=== PATIENT | female | born 1980 | race Asian ===

== ENCOUNTER 2018-02-12 06:10 | Inpatient (IN) | payer BC ==
[~2018-02-12] VITALS: Ht 165.1 cm; Wt 83.0 kg
[2018-02-12] MEDS ORDERED: LR 1,000 ML IV SCH ×2 (06:15→08:30)
[2018-02-12] MEDS ORDERED: CEFAZOLIN 2 GM IVPB PREMIX 50 ML IV ONE (06:15)
[2018-02-12 06:50] LABS: BASOPHILS % (AUTO) 0.2 % (0.0-2.0); EOSINOPHILS # (AUTO) 0.1 K/uL (0.0-0.4); EOSINOPHILS % (AUTO) 1.4 % (0.0-4.0); HEMATOCRIT 36.9 % (36-48); HEMOGLOBIN 12.6 g/dL (12.0-16.0); LYMPHOCYTES # (AUTO) 1.8 K/uL (1.0-5.5); LYMPHOCYTES % (AUTO) 25.2 % (20.5-51.5); MEAN CORPUSCULAR HEMOGLOBIN 32 pg (27-31); MEAN CORPUSCULAR HGB CONC 34 % (32-36); MEAN CORPUSCULAR VOLUME 95 fL (79.0-98.0); MONOCYTES # (AUTO) 0.4 K/uL (0.0-1.0); NEUTROPHILS # (AUTO) 4.8 K/uL (1.8-7.7); NEUTROPHILS % (AUTO) 67.2 % (40.0-70.0); PLATELET COUNT (AUTO) 180 K/uL (130-430); RED BLOOD CELL COUNT(AUTO) 3.88 MIL/uL (4.2-6.2); WHITE BLOOD COUNT (AUTO) 7.1 K/uL (4.8-10.8)
[2018-02-12] MEDS ORDERED: ONDANSETRON HCL 4 MG/2 ML VIAL IVP PRN (08:30)
[2018-02-12] MEDS ORDERED: HYDROmorphone 1 MG INJ. 1 MG/ML AMPUL IVP PRN (08:30)
[2018-02-12] MEDS ORDERED: NALOXONE HCL 0.4 MG/ML AMP (NARCAN) IVP PRN ×3 (08:30)
[2018-02-12] MEDS ORDERED: HYDROmorphone 2 MG/ML VIAL IVP PRN ×2 (08:30)
[2018-02-12] MEDS ORDERED: MEPERIDINE HCL/PF 25 MG/ML DISP.SYRIN IVP PRN ×2 (08:30)
[2018-02-12] MEDS ORDERED: NALOXONE HCL 1 MG in NACL 0.9% 1,000 ML IV PRN ×4 (08:30)
[2018-02-12] MEDS ORDERED: DIPHENHYDRAMINE HCL 50 MG CAPSULE PO PRN (08:30)
[2018-02-12] MEDS ORDERED: KETOROLAC TROMETHAMINE 60 MG/2 ML VIAL IM PRN (08:30)
[2018-02-12] MEDS ORDERED: ONDANSETRON HCL 4 MG/2 ML VIAL ONE (08:50)
[2018-02-12] MEDS ORDERED: BUPIVACAINE /DEX PF 0.75% SPINAL 2 ML AMP INJ ONE (08:50)
[2018-02-12] MEDS ORDERED: MORPHINE SULFATE 10MG/10ML PF AMP ONE (08:50)
[2018-02-12] MEDS ORDERED: OXYTOCIN 10 UNIT/ML VIAL ONE (08:50)
[2018-02-12] MEDS ORDERED: NS IRRIG SOLN 1000 ML IR ONE (08:50)
[2018-02-12] MEDS ORDERED: TRIAMCINOLONE ACETONIDE 40 MG/ML ONE (08:50)
[2018-02-12] MEDS ORDERED: LR 1,000 ML IV.SOLN IV ONE (08:50)
[2018-02-12] MEDS ORDERED: OXYTOCIN/0.9 % SODIUM CHLORIDE 20 UNITS/1,000 ML BAG IV ONE (08:50)
[2018-02-12] MEDS ORDERED: OXYTOCIN/0.9 % SODIUM CHLORIDE 1,000 ML IV ONE ×2 (09:42→11:42)
[2018-02-12] MEDS ORDERED: LANOLIN 7 GM OINT. TP PRN (11:45)
[2018-02-12] MEDS ORDERED: SIMETHICONE 80 MG TAB.CHEW PO PRN (11:45)
[2018-02-12] MEDS ORDERED: OXYCODONE/ACETAMINOPHEN 5-325 TABLET PO PRN (11:45)
[2018-02-12] MEDS ORDERED: ANUSOL 1 EA SUPP.RECT (PREPARATION H) RC PRN (11:45)
[2018-02-12] MEDS ORDERED: SENNOSIDES/DOCUSATE SODIUM 1 TAB TABLET(SENOKOT-S) PO PRN (11:45)
[2018-02-12] MEDS ORDERED: DOCUSATE SODIUM 100 MG CAPSULE PO PRN (11:45)
[2018-02-12] MEDS ORDERED: BISACODYL 10 MG/SUPPOSITORY RC PRN (11:45)
[2018-02-12] MEDS: CEFAZOLIN 1 GM IVPB PREMIX 50 ML IV SCH ×2 (12:21→17:18)
[2018-02-12 16:28] VITALS: BP_SYST 128
[2018-02-12] MEDS: LR 1,000 ML IV SCH (18:19)
[2018-02-12] MEDS: DIPHENHYDRAMINE INJ 50 MG/ML VIAL IVP PRN (18:30)
[2018-02-13] MEDS: CEFAZOLIN 1 GM IVPB PREMIX 50 ML IV SCH (00:13)
[2018-02-13] MEDS: IBUPROFEN 600 MG TABLET PO SCH ×2 (00:13→12:10)
[2018-02-13] MEDS: KETOROLAC TROMETHAMINE 30 MG VIAL IVP PRN ×2 (00:13→05:20)
[2018-02-13] MEDS: LR 1,000 ML IV SCH (02:50)
[2018-02-13] MEDS: DIPHENHYDRAMINE INJ 50 MG/ML VIAL IVP PRN (02:50)
[2018-02-13 06:04] LABS: BASOPHILS % (AUTO) 0.2 % (0.0-2.0); EOSINOPHILS % (AUTO) 0.2 % (0.0-4.0); HEMATOCRIT 31.4 % (36-48); HEMOGLOBIN 10.6 g/dL (12.0-16.0); LYMPHOCYTES % (AUTO) 11.2 % (20.5-51.5); MEAN CORPUSCULAR HEMOGLOBIN 32 pg (27-31); MEAN CORPUSCULAR HGB CONC 34 % (32-36); MEAN CORPUSCULAR VOLUME 96 fL (79.0-98.0); MONOCYTES # (AUTO) 0.4 K/uL (0.0-1.0); MONOCYTES % (AUTO) 4.6 % (1.7-9.3); NEUTROPHILS # (AUTO) 7.5 K/uL (1.8-7.7); NEUTROPHILS % (AUTO) 83.8 % (40.0-70.0); PLATELET COUNT (AUTO) 167 K/uL (130-430); RED BLOOD CELL COUNT(AUTO) 3.28 MIL/uL (4.2-6.2); RED CELL DISTRIBUTION WIDTH 12.6 % (9.0-15.0); WHITE BLOOD COUNT (AUTO) 8.9 K/uL (4.8-10.8)
[2018-02-13] MEDS: OXYCODONE/ACETAMINOPHEN 5-325 TABLET PO PRN ×2 (16:01→20:40)
[2018-02-13] MEDS: IBUPROFEN 600 MG TABLET PO PRN (23:57)
[2018-02-14] MEDS: OXYCODONE/ACETAMINOPHEN 5-325 TABLET PO PRN ×2 (03:12→09:20)
[2018-02-14] MEDS: IBUPROFEN 600 MG TABLET PO PRN ×2 (06:24→12:16)
== END 2018-02-14 16:15 | disposition home or self-care (01) | DRG 788 ==
LOC: SPU 06:10
PROVIDERS: ADMIT Obstetrics & Gynecology; ATTEND Obstetrics & Gynecology
PROC: 10D00Z1 Extraction of Products of Conception, Low, Open Approach (ICD-10-PCS; principal; 2018-02-12 07:30)
DX: O99.824 Streptococcus B carrier state complicating childbirth (principal); Z3A.39 39 weeks gestation of pregnancy; Z37.0 Single live birth
CPT/HCPCS: 36415; 85025; 86886; 86900; 86901; J0690; J1200; J1885; J2274; J2405; J2590; J3301; J3490; J7120